=== PATIENT | male | born 1950 | race Caucasian/White ===

== ENCOUNTER 2016-07-23 11:49 | Outpatient (CLI) | payer MEDICARE ==
[2016-07-23 13:43] LABS: ALT (SGPT) 48 U/L (0-55); AST (SGOT) 22 U/L (5-34); Albumin 4.4 g/dL (3.4-4.8); Alkaline Phosphatase 64 U/L (40-150); Bilirubin, Direct 0.2 mg/dL (0.1-0.3); Bilirubin, Total 0.4 mg/dL (0.2-1.2); Cardiac Risk 5.7 (Less than 4.5); Cholesterol 211 mg/dL (< 200 Desired); HDL Cholesterol 37 mg/dL (>60 Neg Risk); LDL Cholesterol, Calculated 112 mg/dL; Protein, Total 6.8 g/dL (5.8-8.1); Triglycerides 311 mg/dL (Less than 150)
== END 2016-07-23 11:50 | disposition home or self-care (01) ==
LOC: NAVSJIPCSP 11:49
PROVIDERS: ATTEND Internal Medicine
DX: E78.1 Pure hyperglyceridemia (principal); I10 Essential (primary) hypertension
CPT/HCPCS: 36415; 80061; 80076

== ENCOUNTER 2016-10-24 08:37 | Outpatient (CLI) | payer MEDICARE ==
[2016-10-24 13:03] LABS: ALT (SGPT) 71 U/L (8-55); AST (SGOT) 39 U/L (5-34); Albumin 4.4 g/dL (3.4-4.8); Alkaline Phosphatase 70 U/L (40-150); Bilirubin, Direct 0.2 mg/dL (0.1-0.3); Bilirubin, Total 0.5 mg/dL (0.2-1.2); Cardiac Risk 5.3 (Less than 4.5); Cholesterol 206 mg/dl (< 200 Desired); HDL Cholesterol 39 mg/dL (>60 Neg Risk); LDL Cholesterol, Calculated 123 mg/dL; Protein, Total 6.9 g/dL (5.8-8.1); Triglycerides 219 mg/dL (Less than 150)
== END 2016-10-24 08:38 | disposition home or self-care (01) ==
LOC: NAVSJIPCSP 08:37
PROVIDERS: ATTEND Internal Medicine
DX: E78.1 Pure hyperglyceridemia (principal)
CPT/HCPCS: 36415; 80061; 80076

== ENCOUNTER 2017-01-28 10:23 | Outpatient (CLI) | payer MEDICARE ==
[2017-01-28 13:45] LABS: ALT (SGPT) 56 U/L (8-55); AST (SGOT) 27 U/L (5-34); Albumin 4.4 g/dL (3.4-4.8); Alkaline Phosphatase 82 U/L (40-150); Bilirubin, Direct 0.2 mg/dL (0.1-0.3); Bilirubin, Total 0.5 mg/dL (0.2-1.2); Cardiac Risk 5.2 (Less than 4.5); Cholesterol 218 mg/dl (< 200 Desired); HDL Cholesterol 42 mg/dL (>60 Neg Risk); LDL Cholesterol, Calculated 132 mg/dL; Triglycerides 218 mg/dL (Less than 150)
== END 2017-01-28 10:24 | disposition home or self-care (01) ==
LOC: NAVSJIPCSP 10:23
PROVIDERS: ATTEND Internal Medicine
DX: E78.1 Pure hyperglyceridemia (principal)
CPT/HCPCS: 36415; 80061; 80076

== ENCOUNTER 2017-03-06 08:09 | Outpatient (CLI) | payer MEDICARE ==
--- NOTE | 2017-03-06 10:10 | ULT ---
ULTRASOUND ABDOMINAL AORTA: History: Z13.6 Comparison: None. FINDINGS: Proximal aorta measures 1.8 x 1.7 cm. The mid aorta measures 1.8 x 1.3 cm. The distal aorta measures 1.5 x 1.5 cm. No aneurysmal dilatation. IMPRESSION: No aneurysmal dilatation of the aorta. POS: [facility]
== END 2017-03-06 08:10 | disposition home or self-care (01) ==
LOC: NAV ULT 08:09
PROVIDERS: ATTEND Internal Medicine
DX: Z13.6 Encounter for screening for cardiovascular disorders (principal)
CPT/HCPCS: 76775

== ENCOUNTER 2018-11-25 09:09 | Outpatient (CLI) | payer MEDICARE, OTHER ==
--- NOTE | 2018-11-25 09:33 | RAD ---
EXAM: 4 views of the right knee HISTORY: Knee pain for 2 months COMPARISON: None FINDINGS: No knee effusion is seen. There is no evidence of acute fracture or dislocation. Mild trico mpartmental osteophytes are seen. No soft tissue swelling is present. IMPRESSION: Mild degenerative changes without evidence of acute osseous abnormality.
== END 2018-11-25 09:10 | disposition home or self-care (01) ==
LOC: NAV RAD 09:09
PROVIDERS: ATTEND Internal Medicine
DX: M25.561 Pain in right knee (principal); M17.11 Unilateral primary osteoarthritis, right knee